=== PATIENT | female | born 1985 | race Caucasian/White ===

== ENCOUNTER → 2021-02-07 | Outpatient (CLI) | payer BC | LOC: COL.RAD 11:26 | DX: K80.20 Calculus of gallbladder without cholecystitis without obstruction (principal) ==

== ENCOUNTER → 2022-07-03 | Outpatient (CLI) | payer BC | LOC: COL.RAD 13:40 | DX: R16.0 Hepatomegaly, not elsewhere classified (principal) | CPT/HCPCS: A9575 ==